=== PATIENT | male | born 1985 | race Caucasian/White ===

== ENCOUNTER 2023-04-12 10:30 | Emergency (ER) | payer OTHER ==
[2023-04-12] MEDS ORDERED: TORAdol 30 mg Injection ONE (10:40)
[2023-04-12] MEDS ORDERED: KEFLEX 500 MG PO ONE (10:41)
[2023-04-12] MEDS ORDERED: Adacel Vial IM ONE ×2 (10:41→10:46)
[2023-04-12] MEDS ORDERED: KEFLEX 500 MG ONE (10:44)
[2023-04-12 10:45] VITALS: TEMP 97.5; O2SAT 100
[2023-04-12] MEDS ORDERED: TORAdol 30 mg Injection IM ONE (10:45)
[2023-04-12] MEDS ORDERED: XYLOCAINE 1% HCL 20 ML MDV ONE (10:50)
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
--- NOTE | 2023-04-12 11:21 | XRAY ---
Indication: Pain following injury. Comparison: None 3 view right 3rd finger demonstrate distal soft tissue amputation without fracture, dislocation, or radiopaque foreign body.
[2023-04-12 11:45] VITALS: RESP 18
[2023-04-12] MEDS ORDERED: Marcaine Mpf 0.5% Vial 30 Ml ONE (11:51)
[2023-04-12 12:39] VITALS: BP 132/97; PULSE 49
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
--- NOTE | 2023-04-12 13:59 | OP ---
SURGERY DATE/TIME: 04/12/2023 1157 PREOPERATIVE DIAGNOSIS: Amputation tip right long finger. POSTOPERATIVE DIAGNOSIS: Amputation tip right long finger. PROCEDURE: Revision and direct closure of amputation right long fingertip. SURGEON: Elton De La Rosa II, D.O. DESCRIPTION OF PROCEDURE: The patient is identified and informed consent was obtained. At this point, the patient's right long finger was anesthetized with a 50-50 mixture 1% xylocaine plain and 0.5% Marcaine plain via metacarpal rim block. Once an appropriate level of anesthesia had been obtained to the long finger, the finger was then extensively cleaned, prepped and draped in the usual sterile fashion. At this point utilizing a rongeur, a small portion of the distal phalanx was rongeured away and the flap was then mobilized. Prior to cleaning the wound and getting a good examination under anesthesia, it was thought that a V-Y plasty might be necessary. However, the flap was easily mobilized in order to get a direct closure thus the flap was mobilized and somewhat defatted in order to contour. At this point the amputation was repaired with 5-0 Nylon suture. It should be noted the Allison drain which had been used for tourniquet was then released. Hemostasis was noted to be excellent. Sterile dressing utilizing Adaptic, 4x4 and Coban were applied. The patient tolerated the procedure well and will be discharged to home from the emergency room.
== END 2023-04-12 12:56 | disposition home or self-care (01) ==
LOC: ED 10:30
DX: S61.312A Laceration without foreign body of right middle finger with damage to nail, initial encounter (principal); W23.0XXA Caught, crushed, jammed, or pinched between moving objects, initial encounter; E78.5 Hyperlipidemia, unspecified; Z72.0 Tobacco use; Z79.891 Long term (current) use of opiate analgesic; Z23 Encounter for immunization
CPT/HCPCS: 26236; 73140; 90471; 90715; 96372; 99283; J1885; A9270-GY

== ENCOUNTER 2023-11-05 12:37 | Emergency (ER) | payer OTHER ==
--- NOTE | 2023-11-05 12:51 | ERPHSYRPT ---
- History of Present Illness Time Seen by Provider: 11/05/23 12:50 Historian: patient, family Exam Limitations: no limitations Physician History: This is a 38-year-old white male [facility] who presents with 1 week history of diarrhea and abdominal pain. He has had associated nausea but no vomiting. He denies shortness of breath and he denies chest pain. He is a daily smoker of tobacco cigarettes. Patient has not been on any antibiotics recently. He has not been recently diagnosed with flu. There is been no other individuals that he has been around the similar symptoms. He has never had a colonoscopy. Patient has a history of depression, hyperlipidemia and gastroesophageal reflux disease. Timing/Duration: week(s) (1), other (Not worse but persistent) Activities at Onset: none Quality: cramping Abdominal Pain Onset Location: generalized abdomen (Generalized) Severity of Pain-Max: mild Severity of Pain-Current: mild Modifying Factors: Improves With: vomiting (Early on in his symptoms. No recent vomiting) Associated Symptoms: diarrhea, loss of appetite, nausea, vomiting, weakness, No fever/chills, No headache, No neck pain, No shortness of breath Previous symptoms: no prior history, no recent treatment Allergies/Adverse Reactions: No Known Drug Allergies Allergy (Verified 11/05/23 12:49) Home Medications: Atorvastatin Calcium 80 mg PO DAILY 11/05/23 [History] Ezetimibe 10 mg PO DAILY 11/05/23 [History] Meloxicam 7.5 mg PO DAILY 11/05/23 [History] Mirtazapine 15 mg PO HS 11/05/23 [History] Omeprazole 20 mg PO DAILY 11/05/23 [History] Pregabalin 75 mg PO BID 11/05/23 [History] Sertraline HCl [Zoloft] 25 mg PO DAILY 11/05/23 [History] Tizanidine HCl 4 mg [Zanaflex 4 MG] 4 mg PO DAILY PRN 11/05/23 [History] Valacyclovir HCl [Valacyclovir] 500 mg PO DAILY 11/05/23 [History] Hx Tetanus, Diphtheria Vaccination/Date Given: No (unsure) Hx Influenza Vaccination/Date Given: No Hx Pneumococcal Vaccination/Date Given: No Travel Risk - International Travel Have you traveled outside of the country in past 3 weeks: No - Emerging Infectious Disease Are you exhibiting symptoms associated with any current EIDs: No Symptoms: Abdominal Pain, Diarrhea, Vomitting - Review of Systems Constitutional: Weakness Eyes: No Symptoms Ears, Nose, & Throat: No Symptoms Respiratory: No Symptoms Cardiac: No Symptoms Abdominal/Gastrointestinal: Abdominal Pain, Nausea, Vomiting, Constipation Genitourinary Symptoms: No Symptoms Musculoskeletal: No Symptoms Skin: No Symptoms Neurological: No Symptoms Psychological: No Symptoms Endocrine: No Symptoms Hematologic/Lymphatic: No Symptoms Immunological/Allergic: No Symptoms All Other Systems: Reviewed and Negative - Past Medical History Pertinent Past Medical History: Yes Cardiac History: High Cholesterol - Past Surgical History Past Surgical History: Yes Musculoskeletal: Orthopedic Surgery Other Surgical History: shoulder - Social History Smoking Status: Current every day smoker Exposure to second hand smoke: Yes Drug Use: none Patient Lives Alone: No - Nursing Vital Signs Nursing Vital Signs: Initial Vital Signs Temperature 98.7 F 11/05/23 12:58 Pulse Rate 86 11/05/23 12:58 Respiratory Rate 18 11/05/23 12:58 Blood Pressure 155/109 11/05/23 12:58 O2 Sat by Pulse Oximetry 98 11/05/23 12:58 Pain Scale Pain Intensity 3 - Physical Exam General Appearance: no apparent distress, alert, anxiety Ears, Nose, Throat Exam: normal ENT inspection, moist mucous membranes Neck Exam: normal inspection, non-tender, supple, full range of motion Respiratory Exam: normal breath sounds, lungs clear, airway intact, No chest tenderness, No respiratory distress Cardiovascular Exam: regular rate/rhythm, normal heart sounds, normal peripheral pulses Gastrointestinal/Abdomen Exam: soft, normal bowel sounds, tenderness, No rebound (Mild diffuse) Rectal Exam: not done Back Exam: normal inspection, normal range of motion, No CVA tenderness, No vertebral tenderness Extremity Exam: normal inspection, normal range of motion, pelvis stable Neurologic Exam: alert, oriented x 3, cooperative, bush regenerator II-XII nml as tested, nml cerebellar function, nml station & gait, sensation nml Skin Exam: normal color, warm, dry Lymphatic Exam: No adenopathy SpO2 Interpretation: normal O2 Delivery: Room Air - Course Nursing assessment & vital signs reviewed: Yes Ordered Tests: Active Orders 24 hr Category Date Time Status IV Insertion STAT Care 11/05/23 13:36 Active ABDOMEN AND PELVIS W/0 CONTRAS [CT] Stat Exams 11/05/23 13:37 Completed AMYLASE Stat Lab 11/05/23 13:53 Completed CBC W DIFF Stat Lab 11/05/23 13:53 Completed CMP Stat Lab 11/05/23 13:53 Completed LIPASE Stat Lab 11/05/23 13:53 Completed Lactic Acid Stat Lab 11/05/23 13:36 Completed MONO SCREEN Stat Lab 11/05/23 13:53 Completed UA W/RFX UR CULTURE Stat Lab 11/05/23 14:38 Completed Medication Summary Generic Name Dose Route Start Last Admin Trade Name Freq PRN Reason Stop Dose Admin Lactated Ringer's 1,000 mls @ 999 mls/hr 11/05/23 15:17 11/05/23 15:20 Lactated Ringers IV 11/05/23 16:17 999 mls/hr .Q1H1M ONE Administration Discontinued Medications Generic Name Dose Route Start Last Admin Trade Name Freq PRN Reason Stop Dose Admin Sodium Chloride 1,000 mls @ 999 mls/hr 11/05/23 13:36 11/05/23 14:57 Sodium Chloride 0.9% 1000 Ml IV 11/05/23 14:36 Infused .Q1H1M STA Infusion Sodium Chloride Confirm 11/05/23 13:50 Sodium Chloride 0.9% 1000 Ml Administered 11/05/23 13:51 Dose 1,000 mls @ ud .ROUTE .STK-MED ONE Ondansetron HCl 4 mg 11/05/23 13:36 11/05/23 13:56 Ondansetron Hcl 4 Mg/2 Ml Vial IV 11/05/23 13:37 4 mg STAT ONE Administration Ondansetron HCl Confirm 11/05/23 13:50 Ondansetron Hcl 4 Mg/2 Ml Vial Administered 11/05/23 13:51 Dose 4 mg .ROUTE .STK-MED ONE Lab/Rad Data: Laboratory Result Diagrams 11/05/23 13:53 11/05/23 13:53 Laboratory Results 11/05/23 11/05/23 11/05/23 Range/Units 14:38 13:53 13:53 WBC (4.23-9.07) x10^3/uL RBC (4.63-6.08) x10^6/uL Hgb (13.7-17.5) g/dL Hct (40.1-51.0) % MCV (79.0-92.2) fL MCH (25.7-32.2) pg MCHC (32.3-36.5) g/dL RDW (11.6-14.4) % Plt Count (163-337) x10^3/uL MPV (9.4-12.4) fL Gran % (34.0-67.9) % Immature Gran % (Auto) (0.001-0.429) % Nucleat RBC Rel Count (0.00-0.2) % Eos # (Auto) (0.04-0.54) x10^3/uL Immature Gran # (Auto) (0.001-0.031) x10^3u/L Absolute Lymphs (auto) (1.32-3.57) x10^3/uL Absolute Monos (auto) (0.30-0.82) x10^3/uL Absolute Nucleated RBC (0.00-0.012) x10^3u/L Lymphocytes % (21.8-53.1) % Monocytes % (5.3-12.2) % Eosinophils % (0.8-7.0) % Basophils % (0.2-1.2) % Absolute Granulocytes (1.78-5.38) x10^3/uL Basophils # (0.01-0.08) x10^3/uL Sodium (135-145) mmol/L Potassium (3.5-5.1) mmol/L Chloride (98-107) mmol/L Carbon Dioxide (22-30) mmol/L Anion Gap (5-15) MEQ/L BUN (9-20) mg/dL Creatinine (0.66-1.25) mg/dL Estimated GFR ML/MIN Glucose (74-106) mg/dL Lactic Acid (0.4-2.0) Calcium (8.4-10.2) mg/dL Total Bilirubin (0.2-1.3) mg/dL AST (17-59) U/L ALT (0-50) U/L Alkaline Phosphatase (38-126) U/L Serum Total Protein (6.3-8.2) g/dL Albumin (3.5-5.0) g/dL Amylase (30-110) U/L Lipase (23-300) U/L Urine Color Yellow (Yellow) Urine Appearance Clear (Clear) Urine pH 6.0 (4.6-8.0) Ur Specific [place] <=1.005 (1.005-1.030) Urine Protein Negative (Negative) Urine Glucose (UA) Negative (Negative) mg/dL Urine Ketones Negative (Negative) Urine Blood Trace (Negative) Urine Nitrite Negative (Negative) Urine Bilirubin Negative (Negative) Urine Urobilinogen 0.2 (0.2) mg/dL Ur Leukocyte Esterase Negative (Negative) U Hyaline Cast (Auto) NONE SEEN (0-2) /LPF Urine Microscopic RBC 0-2 (0-5) /HPF Urine Microscopic WBC 0-2 (0-5) /HPF Ur Epithelial Cells None Seen (None Seen) /HPF Urine Bacteria None Seen (None Seen) /HPF Urine Culture Reflexed NO (NO) Monoscreen NEGATIVE (NEGATIVE) Influenza Type A Ag NEGATIVE (NEGATIVE) Influenza Type B Ag NEGATIVE (NEGATIVE) RSV (PCR) NEGATIVE (NEGATIVE) SARS-CoV-2 (PCR) NEGATIVE (NEGATIVE) 11/05/23 11/05/23 11/05/23 Range/Units 13:53 13:53 13:36 WBC 8.4 (4.23-9.07) x10^3/uL RBC 5.19 (4.63-6.08) x10^6/uL Hgb 16.8 (13.7-17.5) g/dL Hct 47.3 (40.1-51.0) % MCV 91.1 (79.0-92.2) fL MCH 32.4 H (25.7-32.2) pg MCHC 35.5 (32.3-36.5) g/dL RDW 13.3 (11.6-14.4) % Plt Count 274 (163-337) x10^3/uL MPV 10.5 (9.4-12.4) fL Gran % 58.6 (34.0-67.9) % Immature Gran % (Auto) 0.5 H (0.001-0.429) % Nucleat RBC Rel Count 0.0 (0.00-0.2) % Eos # (Auto) 0.21 (0.04-0.54) x10^3/uL Immature Gran # (Auto) 0.04 H (0.001-0.031) x10^3u/L Absolute Lymphs (auto) 1.91 (1.32-3.57) x10^3/uL Absolute Monos (auto) 1.25 H (0.30-0.82) x10^3/uL Absolute Nucleated RBC 0.00 (0.00-0.012) x10^3u/L Lymphocytes % 22.8 (21.8-53.1) % Monocytes % 14.9 H (5.3-12.2) % Eosinophils % 2.5 (0.8-7.0) % Basophils % 0.7 (0.2-1.2) % Absolute Granulocytes 4.90 (1.78-5.38) x10^3/uL Basophils # 0.06 (0.01-0.08) x10^3/uL Sodium 134 L (135-145) mmol/L Potassium 3.5 (3.5-5.1) mmol/L Chloride 96 L (98-107) mmol/L Carbon Dioxide 26 (22-30) mmol/L Anion Gap 15.5 H (5-15) MEQ/L BUN 12 (9-20) mg/dL Creatinine 1.06 (0.66-1.25) mg/dL Estimated GFR 91.0 ML/MIN Glucose 105 (74-106) mg/dL Lactic Acid 0.9 (0.4-2.0) Calcium 10.1 (8.4-10.2) mg/dL Total Bilirubin 0.90 (0.2-1.3) mg/dL AST 38 (17-59) U/L ALT 33 (0-50) U/L Alkaline Phosphatase 73 (38-126) U/L Serum Total Protein 8.5 H (6.3-8.2) g/dL Albumin 4.5 (3.5-5.0) g/dL Amylase 97 (30-110) U/L Lipase 177 (23-300) U/L Urine Color (Yellow) Urine Appearance (Clear) Urine pH (4.6-8.0) Ur Specific [place] (1.005-1.030) Urine Protein (Negative) Urine Glucose (UA) (Negative) mg/dL Urine Ketones (Negative) Urine Blood (Negative) Urine Nitrite (Negative) Urine Bilirubin (Negative) Urine Urobilinogen (0.2) mg/dL Ur Leukocyte Esterase (Negative) U Hyaline Cast (Auto) (0-2) /LPF Urine Microscopic RBC (0-5) /HPF Urine Microscopic WBC (0-5) /HPF Ur Epithelial Cells (None Seen) /HPF Urine Bacteria (None Seen) /HPF Urine Culture Reflexed (NO) Monoscreen (NEGATIVE) Influenza Type A Ag (NEGATIVE) Influenza Type B Ag (NEGATIVE) RSV (PCR) (NEGATIVE) SARS-CoV-2 (PCR) (NEGATIVE) - Progress Progress: improved, re-examined Progress Note: 11/05/23 14:36 My medical decision making and the assignment of moderate complexity to this patient's medical issue today is based on review of the patient's past medical h istory, review of the patient's medication list, review the patient drug allergy list, history present illness and physical findings on examination. The workup in this patient includes placement of intravenous line, infusion of crystalloid solution, infusion of Zofran intravenously, CBC, CMP, amylase, lipase, urinalysis, CT scan of the abdomen and pelvis, viral swabs and monotest. Differential diagnosis includes but is not limited to pancreatitis, gastritis, gastroenteritis, colitis, viral illness 11/05/23 15:22 I interpreted the patient's laboratory data results. Based on the laboratory da ta results there are no acute, emergent medical issues. CT scan of the abdomen pelvis without contrast was interpreted by the radiologist and I reviewed the impression. The impression states small hiatal hernia. Remaining CT scan of the abdomen pelvis without contrast is negative. There is no evidence of free air. There is no evidence of free fluid. The noncontrasted stomach and bowel loops appear nonobstructed. There is a normal appendix. Because the patient's diarrhea symptoms are worsening we are providing him with a total of 2 L of intravenous crystalloid. I will also remotely send a prescription of Flagyl to the patient's pharmacy. Clinically, he has a type of colitis. Counseled pt/family regarding: lab results, diagnosis, need for follow-up, rad results Medical Desision Making - Diagnostic Testing Diagnostic test were ordered, analyzed, and reviewed by me: Yes Radiological Interpretation: Reviewed by me, Teleradiologist Report - Risk of complications The pt has a mod risk of morbidity or mortality based on: Need for prescription drug management - Departure Departure Disposition: Home Clinical Impression: Intractable diarrhea Condition: Stable Critical Care Time: No Referrals: HOLLIS-FAGG,GRETCHEN J., SENIOR INFRASTRUCTURE ARCHITECT [Primary Care Provider] - Follow up/PCP as directed Additional Instructions: Drink plenty of clear liquids (Gatorade, Sprite, Jell-O) before advancing your diet. Avoid fatty greasy spicy foods. Call your primary care provider tomorrow, 11/06/2023, to make arrangements for follow-up appointment for further evaluation and management. Take your antibiotics and other medications as prescribed. Prescriptions: Metronidazole 500 mg [Flagyl 500 MG] 500 mg PO TID #21 tablet
[2023-11-05 13:06] VITALS: RESP 18; TEMP 98.7
[2023-11-05] MEDS ORDERED: Sodium Chloride 0.9% 1000 ML 1,000 ML ONE (13:50)
[2023-11-05] MEDS ORDERED: Zofran 4 MG/2 ML VIAL ONE (13:50)
[2023-11-05] MEDS: Zofran 4 MG/2 ML VIAL IV ONE (13:56)
[2023-11-05] MEDS: Sodium Chloride 0.9% 1000 ML 1,000 ML IV STA (13:56)
[2023-11-05 13:57] LABS: BASOPHIL % 0.7 % (0.2-1.2); Basophil (Absolute #) 0.06 x10^3/uL (0.01-0.08); Eosinophil % 2.5 % (0.8-7.0); Eosinophil (Absolute #) 0.21 x10^3/uL (0.04-0.54); Hematocrit 47.3 % (40.1-51.0); Hemoglobin 16.8 g/dL (13.7-17.5); IMMATURE GRAN # 0.04 x10^3u/L (0.001-0.031); IMMATURE GRAN % 0.5 % (0.001-0.429); Lymphocyte (Absolute #) 1.91 x10^3/uL (1.32-3.57); Lymphocytes % 22.8 % (21.8-53.1); Mean Cell Volume 91.1 fL (79.0-92.2); Mean Corpuscular Hemoglobin 32.4 pg (25.7-32.2); Mean Corpuscular Hgb Concent. 35.5 g/dL (32.3-36.5); Mean Platelet Volume 10.5 fL (9.4-12.4); Monocyte (Absolute #) 1.25 x10^3/uL (0.30-0.82); Monocytes % 14.9 % (5.3-12.2); Neutrophil % 58.6 % (34.0-67.9); Platelet Count 274 x10^3/uL (163-337); Red Blood Count 5.19 x10^6/uL (4.63-6.08); Red Cell Distribution Width 13.3 % (11.6-14.4); White Blood Count 8.4 x10^3/uL (4.23-9.07)
[2023-11-05 14:10] LABS: ALBUMIN 4.5 g/dL (3.5-5.0); ANION GAP 15.5 MEQ/L (5-15); BILIRUBIN,TOTAL 0.9 mg/dL (0.2-1.3); Calcium 10.1 mg/dL (8.4-10.2); Creatinine 1 1.06 mg/dL (0.66-1.25); Potassium 3.5 mmol/L (3.5-5.1); Total Protein 8.5 g/dL (6.3-8.2)
[2023-11-05 14:30] LABS: INFLUENZA A NEGATIVE (NEGATIVE); INFLUENZA B NEGATIVE (NEGATIVE); RESPIRATORY SYNCTIAL VIRUS NEGATIVE (NEGATIVE); SARS-CoV-2 Xpert Express NEGATIVE (NEGATIVE)
--- NOTE | 2023-11-05 14:43 | XRAY ---
Indication: Abdomen pain and diarrhea 1 week. Multiple contiguous axial images obtained through the abdomen and pelvis without contrast. Comparison: None Lung bases clear. Heart not enlarged. Small hiatal hernia. Noncontrasted stomach and bowel loops appear nonobstructed with normal appendix. No free fluid/air. Remaining liver, gallbladder, pancreas, spleen, adrenal glands, kidneys, ureters, bladder, and aorta are unremarkable for noncontrast exam. Osseous structures intact. Impression: Small hiatal hernia. Remaining CT abdomen/pelvis without contrast exam is normal.
[2023-11-05 14:48] LABS: Appearance Clear (Clear); Bacteria None Seen /HPF (None Seen); Bilirubin Negative (Negative); Blood Trace (Negative); Epithelial Cells None Seen /HPF (None Seen); Glucose, Urine Negative (Negative); Hyaline Casts NONE SEEN /LPF (0-2); Ketones Negative (Negative); Leukocyte Esterase Negative (Negative); Nitrite Negative (Negative); Protein,Urine Dip Negative (Negative); RBC 0-2 /HPF (0-5); Specific Gravity <=1.005 (1.005-1.030); Urobilinogen 0.2 mg/dL (0.2); WBC 0-2 /HPF (0-5)
[2023-11-05 14:56] LABS: ADD URINE CULTURE? NO (NO)
[2023-11-05] MEDS ORDERED: Lactated Ringers 1,000 ML IV ONE (15:19)
[2023-11-05] MEDS: Lactated Ringers 1,000 ML IV ONE (15:20)
[2023-11-05] MEDS ORDERED: Flagyl 500 MG ONE (15:24)
[2023-11-05] MEDS: Flagyl 500 MG PO ONE (15:25)
[2023-11-05 15:27] LABS: 027 TOX PROD PRESUMPTIVE NEGATIVE (NEGATIVE); TOXIGENIC C. DIFF ORG NEGATIVE (NEGATIVE)
[2023-11-05 16:03] VITALS: PULSE 69
[2023-11-05 16:34] VITALS: BP 141/85; O2SAT 97
== END 2023-11-05 16:35 | disposition home or self-care (01) ==
LOC: ED 12:37
DX: R19.7 Diarrhea, unspecified (principal); R10.9 Unspecified abdominal pain; F17.200 Nicotine dependence, unspecified, uncomplicated; Z79.899 Other long term (current) drug therapy
CPT/HCPCS: 0241U; 36000; 36415; 74176; 80053; 81001; 82150; 83605; 83690; 85025; 86308; 87493; 96360; 96374; 99284; J2405; A9270-GY

== ENCOUNTER 2024-01-05 14:30 | Emergency (ER) | payer OTHER ==
[2024-01-05 14:42] VITALS: TEMP 97.6
[2024-01-05 15:11] LABS: Absolute Neutrophil Ct (ANC) 10.27 x10^3/uL (1.78-5.38); BASOPHIL % 0.4 % (0.2-1.2); Basophil (Absolute #) 0.05 x10^3/uL (0.01-0.08); Eosinophil % 0.1 % (0.8-7.0); Eosinophil (Absolute #) 0.01 x10^3/uL (0.04-0.54); Hematocrit 50.9 % (40.1-51.0); Hemoglobin 17.3 g/dL (13.7-17.5); IMMATURE GRAN # 0.03 x10^3u/L (0.001-0.031); IMMATURE GRAN % 0.2 % (0.001-0.429); Lymphocyte (Absolute #) 0.74 x10^3/uL (1.32-3.57); Mean Cell Volume 96.6 fL (79.0-92.2); Mean Corpuscular Hemoglobin 32.8 pg (25.7-32.2); Mean Platelet Volume 10.6 fL (9.4-12.4); Monocyte (Absolute #) 1.16 x10^3/uL (0.30-0.82); Monocytes % 9.5 % (5.3-12.2); Neutrophil % 83.8 % (34.0-67.9); Platelet Count 215 x10^3/uL (163-337); Red Blood Count 5.27 x10^6/uL (4.63-6.08); Red Cell Distribution Width 14.6 % (11.6-14.4); White Blood Count 12.3 x10^3/uL (4.23-9.07)
[2024-01-05] MEDS ORDERED: Sodium Chloride 0.9% 1000 ML 1,000 ML ONE (15:12)
[2024-01-05] MEDS ORDERED: MORPHINE SULFATE 4 MG INJ ONE (15:12)
[2024-01-05] MEDS ORDERED: Compazine 10 MG/2 ML ONE (15:12)
[2024-01-05] MEDS: Sodium Chloride 0.9% 1000 ML 1,000 ML IV STA (15:14)
[2024-01-05] MEDS: Compazine 10 MG/2 ML IV ONE (15:15)
[2024-01-05] MEDS: MORPHINE SULFATE 4 MG INJ IV ONE (15:17)
[2024-01-05 15:24] LABS: ALBUMIN 5.4 g/dL (3.5-5.0); ANION GAP 38.9 MEQ/L (5-15); Calcium 10.3 mg/dL (8.4-10.2); Creatinine 1 1.59 mg/dL (0.66-1.25); EST GLOMERULAR FILTRATION RATE 55.9 ML/MIN; Total Protein 9.7 g/dL (6.3-8.2)
--- NOTE | 2024-01-05 15:34 | ERPHSYRPT ---
- History of Present Illness Time Seen by Provider: 01/05/24 15:28 Historian: patient Exam Limitations: no limitations Patient Subjective Stated Complaint: PT states "I have pain in my back and my right side and I cannot keep anything down." Triage Nursing Assessment: PT presented alert and oriented X 3, skin pwd. Pt ambulates with an upright steady gait, able to speak in clear full sentences. Pt resting comfortably on the bed. Physician History: PT states "I have pain in my back and my right side and I cannot keep anything down." Patient is 38-year-old male with significant past medical history of hyperlipidemia history of alcohol abuse started having a pain in the right costovertebral angle area radiating to the front. 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 He has been having nausea and vomiting. He has not been able to keep anything down. Pain got worse so he came to the emergency room at around 3 PM. Timing/Duration: today Quality: cramping, stabbing Abdominal Pain Onset Location: RLQ, flank Pain Radiation: RLQ Severity of Pain-Max: moderate Severity of Pain-Current: moderate Modifying Factors: Improves With: nothing Associated Symptoms: nausea Previous symptoms: no prior history Body Map: 1 - area of pain 2 - radiation of pain Allergies/Adverse Reactions: No Known Drug Allergies Allergy (Verified 11/05/23 12:49) Home Medications: Atorvastatin Calcium 80 mg PO DAILY 11/05/23 [History] Ezetimibe 10 mg PO DAILY 11/05/23 [History] Meloxicam 7.5 mg PO DAILY 11/05/23 [History] Mirtazapine 15 mg PO HS 11/05/23 [History] Omeprazole 20 mg PO DAILY 11/05/23 [History] Pregabalin 75 mg PO BID 11/05/23 [History] Sertraline HCl [Zoloft] 25 mg PO DAILY 11/05/23 [History] Valacyclovir HCl [Valacyclovir] 500 mg PO DAILY 11/05/23 [History] Hx Tetanus, Diphtheria Vaccination/Date Given: No (unsure) Hx Influenza Vaccination/Date Given: No Hx Pneumococcal Vaccination/Date Given: No Immunizations Up to Date: No Travel Risk - International Travel Have you traveled outside of the country in past 3 weeks: No - Emerging Infectious Disease Are you exhibiting symptoms associated with any current EIDs: No Symptoms: Abdominal Pain, Diarrhea, Vomitting - Review of Systems Constitutional: No Fever, No Chills Eyes: No Symptoms Ears, Nose, & Throat: No Symptoms Respiratory: No Cough, No Dyspnea Cardiac: No Chest Pain, No Edema, No Syncope Abdominal/Gastrointestinal: Abdominal Pain, Nausea, No Vomiting, No Diarrhea Genitourinary Symptoms: No Dysuria Musculoskeletal: No Back Pain, No Neck Pain Skin: No Rash Neurological: No Dizziness, No Focal Weakness, No Sensory Changes Psychological: No Symptoms Endocrine: No Symptoms All Other Systems: Reviewed and Negative - Past Medical History Pertinent Past Medical History: Yes Cardiac History: High Cholesterol, Hypertension Psycho-Social History: Anxiety, Panic Disorder - Past Surgical History Past Surgical History: Yes Musculoskeletal: Orthopedic Surgery Other Surgical History: shoulder - Social History Smoking Status: Current every day smoker Exposure to second hand smoke: Yes Drug Use: none Patient Lives Alone: No - Social Determinants of Health Will the patient participate in the screening: Yes Do you worry about a steady place to live?: No Do you have any problems with any of the following?: No known problems In the past 12 months,have you had to go without utilities?: No Transportation Issues: No Has anyone in your support network made you feel unsafe?: No Have you or anyone in your house had to go without enough: No - Nursing Vital Signs Nursing Vital Signs: Initial Vital Signs Temperature 97.6 F 01/05/24 14:38 Pulse Rate 119 H 01/05/24 14:38 Respiratory Rate 20 01/05/24 14:38 Blood Pressure 141/112 01/05/24 14:38 O2 Sat by Pulse Oximetry 98 01/05/24 14:38 Pain Scale Pain Intensity 4 - Physical Exam General Appearance: no apparent distress, alert Eye Exam: PERRL/EOMI, eyes nml inspection Ears, Nose, Throat Exam: normal ENT inspection, pharynx normal, moist mucous membranes Neck Exam: normal inspection, non-tender, supple, full range of motion Respiratory Exam: normal breath sounds, lungs clear, No respiratory distress Cardiovascular Exam: regular rate/rhythm, normal heart sounds Gastrointestinal/Abdomen Exam: soft, tenderness (right CVA area, Right lower quadrant area), No mass Back Exam: normal inspection, normal range of motion, No CVA tenderness, No vertebral tenderness Extremity Exam: normal inspection, normal range of motion, pelvis stable Neurologic Exam: alert, oriented x 3, cooperative, normal mood/affect, nml cerebellar function, sensation nml, No motor deficits Skin Exam: normal color, warm, dry SpO2: 98 - Course Nursing assessment & vital signs reviewed: Yes - CT Exams Abdomen/Pelvis CT Interpretation: Tele-radiologist Report (colitis) Ordered Tests: Active Orders 24 hr Category Date Time Status ABDOMEN AND PELVIS W/0 CONTRAS [CT] Stat Exams 01/05/24 14:58 Completed AMYLASE Stat Lab 01/05/24 14:20 Completed CBC W DIFF Stat Lab 01/05/24 14:20 Completed CMP Stat Lab 01/05/24 14:20 Completed LIPASE Stat Lab 01/05/24 14:20 Completed UA W/RFX UR CULTURE Stat Lab 01/05/24 14:20 Ordered Urine Triage Profile Stat Lab 01/05/24 14:20 Ordered Medication Summary Discontinued Medications Generic Name Dose Route Start Last Admin Trade Name Freq PRN Reason Stop Dose Admin Sodium Chloride 1,000 mls @ 999 mls/hr 01/05/24 14:58 01/05/24 15:14 Sodium Chloride 0.9% 1000 Ml IV 01/05/24 15:58 999 mls/hr .Q1H1M STA Administration Sodium Chloride Confirm 01/05/24 15:12 Sodium Chloride 0.9% 1000 Ml Administered 01/05/24 15:13 Dose 1,000 mls @ ud .ROUTE .STK-MED ONE Ceftriaxone Sodium 1 gm in 100 mls @ 200 mls/hr 01/05/24 15:48 01/05/24 15:59 Rocephin 1 Gm / 100 Ml Nacl IV 01/05/24 16:17 200 ml/hr STAT ONE 200 mls/hr Administration Ceftriaxone Sodium Confirm 01/05/24 15:57 Rocephin 1 Gm / 100 Ml Nacl Administered 01/05/24 15:58 Dose 1 gm in 100 mls @ ud IV .STK-MED ONE Morphine Sulfate 4 mg 01/05/24 14:58 01/05/24 15:17 Morphine Sulfate 4 Mg/Ml Injection IV 01/05/24 14:59 4 mg STAT ONE Administration Morphine Sulfate Confirm 01/05/24 15:12 Morphine Sulfate 4 Mg/Ml Injection Administered 01/05/24 15:13 Dose 4 mg .ROUTE .STK-MED ONE Prochlorperazine Edisylate 5 mg 01/05/24 14:58 01/05/24 15:15 Prochlorperazine Edisylate 10 Mg/2 Ml Vial IV 01/05/24 14:59 5 mg STAT ONE Administration Prochlorperazine Edisylate Confirm 01/05/24 15:12 Prochlorperazine Edisylate 10 Mg/2 Ml Vial Administered 01/05/24 15:13 Dose 10 mg .ROUTE .[facility] ONE Lab/Rad Data: Laboratory Result Diagrams 01/05/24 14:20 01/05/24 14:20 Laboratory Results 01/05/24 01/05/24 Range/Units 14:20 14:20 WBC 12.3 H (4.23-9.07) x10^3/uL RBC 5.27 (4.63-6.08) x10^6/uL Hgb 17.3 (13.7-17.5) g/dL Hct 50.9 (40.1-51.0) % MCV 96.6 H (79.0-92.2) fL MCH 32.8 H (25.7-32.2) pg MCHC 34.0 (32.3-36.5) g/dL RDW 14.6 H (11.6-14.4) % Plt Count 215 (163-337) x10^3/uL MPV 10.6 (9.4-12.4) fL Gran % 83.8 H (34.0-67.9) % Immature Gran % (Auto) 0.2 (0.001-0.429) % Nucleat RBC Rel Count 0.0 (0.00-0.2) % Eos # (Auto) 0.01 L (0.04-0.54) x10^3/uL Immature Gran # (Auto) 0.03 (0.001-0.031) x10^3u/L Absolute Lymphs (auto) 0.74 L (1.32-3.57) x10^3/uL Absolute Monos (auto) 1.16 H (0.30-0.82) x10^3/uL Absolute Nucleated RBC 0.00 (0.00-0.012) x10^3u/L Lymphocytes % 6.0 L (21.8-53.1) % Monocytes % 9.5 (5.3-12.2) % Eosinophils % 0.1 L (0.8-7.0) % Basophils % 0.4 (0.2-1.2) % Absolute Granulocytes 10.27 H (1.78-5.38) x10^3/uL Basophils # 0.05 (0.01-0.08) x10^3/uL Sodium 138 (135-145) mmol/L Potassium 5.0 (3.5-5.1) mmol/L Chloride 98 (98-107) mmol/L Carbon Dioxide 7 L* (22-30) mmol/L Anion Gap 38.9 H (5-15) MEQ/L BUN 19 (9-20) mg/dL Creatinine 1.59 H (0.66-1.25) mg/dL Estimated GFR 55.9 ML/MIN Glucose 178 H (74-106) mg/dL Calcium 10.3 H (8.4-10.2) mg/dL Total Bilirubin 2.00 H (0.2-1.3) mg/dL AST 52 (17-59) U/L ALT 56 H (0-50) U/L Alkaline Phosphatase 111 (38-126) U/L Serum Total Protein 9.7 H (6.3-8.2) g/dL Albumin 5.4 H (3.5-5.0) g/dL Amylase 138 H (30-110) U/L Lipase 173 (23-300) U/L - Progress Progress: improved, pain not gone completely Counseled pt/family regarding: lab results, diagnosis, need for follow-up, rad results Medical Desision Making - Diagnostic Testing Diagnostic test were ordered, analyzed, and reviewed by me: Yes Radiological Interpretation: Teleradiologist Report - Risk of complications Low Risk: Low risk of morbidity from additional dx testing or treatment - Departure Departure Disposition: Home Clinical Impression: Colitis, Alcohol abuse, continuous drinking behavior Condition: Stable Critical Care Time: No Referrals: GRETCHEN MOREIRA, [employer] [Primary Care Provider] - Follow up/PCP as directed Instructions: Microscopic colitis Additional Instructions: Discharge/Care Plan NORBERTO LOZA was seen on 01/05/24 in the Emergency Room. The patient was counseled regarding Diagnosis,Lab results, Imaging studies, need for follow up and when to return to the Emergency Room. Prescriptions given: Discharge Note I have spoken with the patient and/or caregivers. I have explained the patient's condition, diagnosis and treatment plan based on the information available to me at this time. I have answered the patient's and/or caregiver's questions and addressed any concerns. The patient and/or caregivers have as good understanding of the patient's diagnosis, condition and treatment plan as can be expected at this point. The vital signs have been stable. The patient's condition is stable and appropriate for discharge from the emergency department. The patient will pursue further outpatient evaluation with the primary care physician or other designated or consulting physician as outlined in the discharge instructions. The patient and/or caregivers are agreeable to this plan of care and follow-up instructions have been explained in detail. The patient and/or caregivers have received these instruction. The patient/and or caregivers are aware that any significant change in condition or worsening of symptoms shou ld prompt an immediate return to this or the closest emergency department or call 911. NORBERTO LOZA was seen on 01/05/24 n the Emergency Room. At that time you were treated for an emergent condition, during your visit Laboratory, Radiology and/or other procedures may have been ordered. It is very important that you follow-up with your Primary Care Physician GRETCHEN MOREIRA NP within the next 24-48 hours to review your Emergency Room visit and the final results of testing that was ordered. Some test results such as Urine Cultures, Blood Cultures, and other cultures if ordered will not be finalized for 24-48 hours. If you do not have a Primary Care Provider please call the medical records department at [phone] ext [phone] to obtain a copy of your results or you may sign into our patient portal to obtain these results by visiting us @ [email or web address] and completing the following steps: 1. Click on the Patient Portal link 2. Click the Patient Self Enrollment Link to complete the enrollment form and entering your 3. Once the enrollment form is completed you will receive an email with a temporary ID and password at the email address you provided. 4. Next choose a user name and password. Your user name must be at least 4 characters long and your password must be at least 4 characters long. 5. Choose a security question from the list and provide your answer to the question. If you already have signed into the Health Portal you may access your Health Care Information 09/10 by the following steps: 1. Login to our website @ [email or web address] 2. Enter your original user name and password. FAQS The [facility] Health Portal is an online tool that contains your Lab Results, R adiology Reports, Visit History, Discharge Instructions and Health Summary Lab and Radiology Results will not be available for 72 hours on the portal. The Portal is a secure site, passwords are encryted and URLs are re-written so they cannot be copied and pasted. You and authorized family members are the only ones who can access your Portal. Also there is a timeout feature that protects your information if you leave the Portal page open. If you have technical difficulty please use the Contact Us link on the page this will allow you to submit any questions you have regarding the Portal or you may contact the Medical Record Department at [phone] ext [phone]. Prescriptions: Ciprofloxacin [Cipro 500 MG] 500 mg PO BIDAC #20 tablet Metronidazole 500 mg [Flagyl 500 MG] 500 mg PO TID #21 tablet
[2024-01-05] MEDS ORDERED: ROCEPHIN 1 GM / 100 ML NaCl 1 GM/100 ML IVPB IV ONE (15:57)
[2024-01-05] MEDS: ROCEPHIN 1 GM / 100 ML NaCl 1 GM/100 ML IVPB IV ONE (15:59)
[2024-01-05 16:17] VITALS: BP 153/118; PULSE 113; RESP 22
--- NOTE | 2024-01-05 16:26 | XRAY ---
CLINICAL HISTORY: right CVA pain, radiating to front COMPARISON: No prior studies available for comparison. TECHNIQUE: Non-contrast CT of the abdomen and pelvis was performed, with the following protocol: axial images, and reconstructed coronal and sagittal images. One of the following dose reduction techniques was utilized for this exam: Automated exposure control, adjustment of the mA and/or kV according to patient size, and use of iterative reconstruction. CTDI: 5.92mGy, DLP: 316.39mGy*cm. FINDINGS: Abdomen: Liver: Mild fatty hepatomegaly measuring about 17.8 cm. No focal lesions, cysts, or masses were identified. Gallbladder and Biliary System: The gallbladder is normal in size and shape. No wall thickening, pericholecystic fluid, or gallstones were identified. Probable sludge in gallbladder. Needs ultrasound correlation Pancreas: Pancreatic head, body, and tail are visualized and appear normal in size and density. No pancreatic masses or calcifications were noted. Spleen: Normal in size, shape, and density. No splenic lesions or masses were identified. Kidneys and Adrenal Glands: Both kidneys are normal in size, shape, and position. Cortical thickness is within normal limits. No renal calculi or hydronephrosis. Adrenal glands are unremarkable. Mild atheromatous calcification of the aorta. Appendix: The appendix is normal in size without do appendiceal fat stranding and without an appendicolith. No evidence of appendiceal abscess or perforation. Pelvis: Urinary Bladder: Normal in contour and wall thickness. No intraluminal lesions. Prostate: Normal in size and contour. No masses or abnormal thickening. Seminal Vesicles: Normal appearance without abnormal enlargement or mass. Peritoneal and Retroperitoneal Structures: No free fluid or abnormal fluid collections were identified within the abdomen or pelvis. No lymphadenopathy was noted. Few subcentemetric mesentric L.Ns are noted as likely inflammatory. Bowel: Mild diffuse edematous change / mural thickening of the colon , no associated mass lesions Bones and Soft Tissues: Pelvic bones and soft tissues are unremarkable. No fractures or abnormal masses were identified. IMPRESSION: 1. Diffuse colonic edematous changes/ apparent wall thickening, likely inflammatory etiology. Suggest clinical correlation. 2. Hepatomegaly, Fatty infiltration of liver for lab correlation. Electronically Signed by: Donny Dickerson MD. (01/05/2024 16:22:16 EDT)
[2024-01-05 16:31] VITALS: O2SAT 98
== END 2024-01-05 16:51 | disposition home or self-care (01) ==
LOC: ED 14:30
DX: K52.9 Noninfective gastroenteritis and colitis, unspecified (principal); F10.10 Alcohol abuse, uncomplicated; R10.9 Unspecified abdominal pain; M54.9 Dorsalgia, unspecified; R11.2 Nausea with vomiting, unspecified; E78.5 Hyperlipidemia, unspecified; I10 Essential (primary) hypertension; Z79.899 Other long term (current) drug therapy; Z72.0 Tobacco use
CPT/HCPCS: 36415; 74176; 80053; 82150; 83690; 85025; 96360; 96365; 96374; 96375; 99284; J0696; J2270